=== PATIENT | female | born 1955 | race Caucasian/White ===

== ENCOUNTER → 2021-01-17 12:31 | Outpatient (CLI) | payer MEDICARE, MEDICAID, SELFPAY ==
[2021-01-05 10:12] VITALS: BMI 36.5
[2021-01-17 14:09] VITALS: PULSE 102; PULSE 110; PULSE 112; PULSE 114; PULSE 116; PULSE 118; PULSE 86; PULSE 88; O2SAT 86; O2SAT 87; O2SAT 89; O2SAT 90; O2SAT 91; O2SAT 92; O2SAT 94
--- NOTE | 2021-01-17 14:12 | CPS ---
PATIENT HAS OXYGEN AT HOME THROUGH [employer]. PLACED ON RA PRIOR TO TESTING. SPO2 86%, WALK BEGAN ON 2LPM. PATIENT RESTED FREQUENTLY THROUGHOUT TESTING, OXYGEN INCREASED TO 3LPM AROUND 3MIN OF TEST D/T SPO2 87% 2L. REMAINED ON 3LPM DURATION OF TEST.
--- NOTE | 2021-01-18 10:04 | WT_ITS ---
PSN 6 Minute Walk Test 6 Minute Walk Test 6 Minute Walk Test: 6 Minute Walk Test PSN:6-Minute Walk Test Start: 01/17/21 13:52 Freq: Status: Active Protocol: RESP.6MINW Document 01/17/21 14:09 [facility] (Rec: 01/17/21 14:14 [facility] [id number]) 6 Minute Walk Test Date Performed 01/17/21 Time Performed 12:30 Height 5 ft Weight: 210 lb Weight in Pounds 210.[address]: Venkatesh Morales Assistive device used: None Pre-test Oxygen Delivery Method Room Air Pulse Ox (%) 86 Pulse Rate (60-100 beats/min) 88 Dyspnea Mary Scale (0-10) 3 Reported Symptoms Increased Work of Breathing 1st minute Oxygen Flow Rate (L/min) (L/min) 2 Oxygen Delivery Method Nasal Cannula Pulse Ox (%) 90 Pulse Rate (60-100 beats/min) 102 H Dyspnea Mary Scale (0-10) 5 Number of Rests Taken 1 Reported Symptoms Increased Work of Breathing 2nd minute Oxygen Flow Rate (L/min) (L/min) 2 Oxygen Delivery Method Nasal Cannula Pulse Ox (%) 90 Pulse Rate (60-100 beats/min) 110 H Dyspnea Mary Scale (0-10) 5 Number of Rests Taken 1 Reported Symptoms Increased Work of Breathing 3rd minute Oxygen Flow Rate (L/min) (L/min) 2 Oxygen Delivery Method Nasal Cannula Pulse Ox (%) 87 Pulse Rate (60-100 beats/min) 116 H Dyspnea Mary Scale (0-10) 5 Number of Rests Taken 1 Reported Symptoms Increased Work of Breathing 4th minute Oxygen Flow Rate (L/min) (L/min) 3 Oxygen Delivery Method Nasal Cannula Pulse Ox (%) 91 Pulse Rate (60-100 beats/min) 112 H Dyspnea Mary Scale (0-10) 4 Number of Rests Taken 1 Reported Symptoms Increased Work of Breathing 5th minute Oxygen Flow Rate (L/min) (L/min) 3 Oxygen Delivery Method Nasal Cannula Pulse Ox (%) 92 Pulse Rate (60-100 beats/min) 114 H Dyspnea Mary Scale (0-10) 5 Number of Rests Taken 1 Reported Symptoms Increased Work of Breathing 6th minute Oxygen Flow Rate (L/min) (L/min) 3 Oxygen Delivery Method Nasal Cannula Pulse Ox (%) 89 Pulse Rate (60-100 beats/min) 118 H Dyspnea Mary Scale (0-10) 5 Number of Rests Taken 0 Reported Symptoms Increased Work of Breathing Post-test Oxygen Flow Rate (L/min) (L/min) 3 Oxygen Delivery Method Nasal Cannula Pulse Ox (%) 94 Pulse Rate (60-100 beats/min) 86 Dyspnea Mary Scale (0-10) 3 Reported Symptoms Increased Work of Breathing Full Laps Walked 6 Partial Lap, Number of Tiles Walked 13 Total Distance Walked (ft) 367 01/17/21 14:12 [facility] by Fatuma Roberts PATIENT HAS OXYGEN AT HOME THROUGH [employer]. PLACED ON RA PRIOR TO TESTING. SPO2 86%, WALK BEGAN ON 2LPM. PATIENT RESTED FREQUENTLY THROUGHOUT TESTING, OXYGEN INCREASED TO 3LPM AROUND 3MIN OF TEST D/T SPO2 87% 2L. REMAINED ON 3LPM DURATION OF TEST. Initialized on 01/17/21 14:12 - END OF NOTE Interpretation Interpretation: The patient ambulated 367 feet over the course of 6 minutes beginning on room air without assistive devices. Pretesting oxygen saturation was noted to be 86% on room air. Therefore, 2 L/min of oxygen was applied to the patient prior to the initiation of testing. With ambulation, the kimberli oxygen saturation was 87%. The patient supplemental oxygen flow rate was increased to 3 L/min to complete the remainder of the test. Recommendations Recommendations: 3 L/min of supplemental oxygen should be utilized at all times.
== END ==
PROVIDERS: PCP Nurse Practitioner Primary Care; Referring Provider Internal Medicine Critical Care Medicine; Visit Provider Internal Medicine Critical Care Medicine
DX: J96.11 Chronic respiratory failure with hypoxia (principal); Z99.81 Dependence on supplemental oxygen; G47.10 Hypersomnia, unspecified
CPT/HCPCS: 94618

== ENCOUNTER → 2021-01-19 12:58 | Outpatient (CLI) | payer MEDICARE, MEDICAID, SELFPAY ==
[2021-01-05 10:12] VITALS: BMI 36.5
--- NOTE | 2021-01-20 10:44 | PFT ---
INTRODUCTION: The patient is a 65-year-old female that presents for pulmonary function studies secondary to a diagnosis of hypoxemia. Respiratory therapy reports good patient effort. Bronchodilators were used during testing. INTERPRETATION: Forced expiration spirometry demonstrates the presence of a very severe large airways obstructive ventilatory defect. There was a partial, albeit technically nonsignificant, response to aerosolized bronchodilators. Spirograms are of fair quality but do not plateau indicating slow emptying of the lungs. Body plethysmography was performed and revealed an elevated RV to 157% of predicted, indicative of underlying air trapping. Diffusing capacity by single breath CO is severely reduced at 37% of predicted. IMPRESSION: Irreversible very severe large airways obstructive ventilatory defect with associated air trapping and symmetric reduction in diffusing capacity.
== END ==
PROVIDERS: PCP Nurse Practitioner Primary Care; Referring Provider Internal Medicine Critical Care Medicine; Visit Provider Internal Medicine Critical Care Medicine
DX: J96.11 Chronic respiratory failure with hypoxia (principal); Z99.81 Dependence on supplemental oxygen; G47.10 Hypersomnia, unspecified
CPT/HCPCS: 94060; 94726; 94729

== ENCOUNTER → 2021-02-07 20:00 | Outpatient (CLI) | payer MEDICARE, MEDICAID, SELFPAY ==
[2021-01-05 10:12] VITALS: BMI 36.5
== END ==
PROVIDERS: PCP Nurse Practitioner Primary Care; Referring Provider Internal Medicine Critical Care Medicine; Visit Provider Internal Medicine Critical Care Medicine
DX: J96.11 Chronic respiratory failure with hypoxia (principal); G47.10 Hypersomnia, unspecified
CPT/HCPCS: 95810

== ENCOUNTER → 2024-12-01 | Outpatient (CLI) | payer MEDICARE, MEDICAID, SELFPAY | END | disposition home or self-care (01) | PROVIDERS: PCP Nurse Practitioner Primary Care; Referring Provider Nurse Practitioner Family; Visit Provider Nurse Practitioner Family | DX: J44.9 Chronic obstructive pulmonary disease, unspecified (principal) | CPT/HCPCS: 94060; 94726 ==

== ENCOUNTER → 2024-12-28 | Outpatient (CLI) | payer MEDICARE, MEDICAID, SELFPAY ==
--- NOTE | 2024-12-28 12:32 | CT_ITS ---
PROCEDURE: LOW DOSE CT LUNG SCREENING 12/28/2024 REASON FOR EXAM: 30 PACK YEAR, QUIT 2019. TECHNIQUE: LOW DOSE CT LUNG SCREENING Coronal and Sagittal reconstruction series were provided. One or more dose reduction techniques were used (e.g., Automated exposure control, adjustment of the mA and/or kV according to patient size, use of iterative reconstruction technique). REFERENCE LINK: [facility] Lung-RADS RADIATION DOSE SUMMARY: CTDlvol: 4.02 mGy DLP: 133.9 mGycm COMPARISON: 07/30/2024. FINDINGS: PULMONARY NODULES: (Only nodules >3mm are reported) Nodules described below are on series 2 unless otherwise specified. Pulmonary Nodules: None. Mild bilateral basilar atelectatic pulmonary changes. Normal unenhanced main pulmonary artery and right and left pulmonary arteries. Normal bilateral peripheral pulmonary arteries. Normal thoracic aorta and visualized great vessels. There is no demonstrated aortic aneurysm. Normal heart and pericardium. Normal mediastinum. Normal hilar regions. Normal visualized trachea and bronchi. The remaining lungs are well expanded. Normal remaining pulmonary parenchyma. Normal pleura. Normal chest wall structures. Normal osseous structures. Normal visualized upper abdomen. CT/Low Dose CT Lung Screening IMPRESSION: Mild bilateral basilar atelectatic pulmonary changes. Coronary artery calcification (CAC) is is present Lung-RADS Category: 2 BENIGN (BASED ON IMAGING FEATURES OR INDOLENT BEHAVIOR). RECOMMEND 12-MONTH SCREENING LDCT. Other Significant Findings: None. Reading [facility] [address]
[2024-12-28 13:35] VITALS: PULSE 101; PULSE 106; PULSE 110; PULSE 112; PULSE 116; PULSE 79; PULSE 88; PULSE 92; O2SAT 87; O2SAT 88; O2SAT 89; O2SAT 90; O2SAT 92; O2SAT 94; O2SAT 97
--- NOTE | 2024-12-28 13:40 | CPS ---
PATIENT WAS PLACED ON ROOM AIR PRIOR TO WALK TEST. SPO2 WAS 87% AFTER 5 MINUTES, PLACED ON 2LPM AND WALK TEST BEGAN. PATIENT TOOK REST BREAKS EACH MINUTE, NO MORE EXERCISE COMPLETED AFTER 4TH MINUTE. PATIENT REQUIRED 4LPM TO KEEP SPO2 >88% AND WAS ABLE TO COMPLETE 141FT DURING TESTING. SHE HAS O2 AT HOME WITH [facility].
--- NOTE | 2024-12-31 10:11 | PCM.PSN.6M ---
PSN 6 Minute Walk Test 6 Minute Walk Test 6 Minute Walk Test: 6 Minute Walk Test PSN:6-Minute Walk Test Start: 12/28/24 13:34 Freq: Status: Active Protocol: RESP.6MINW Document 12/28/24 13:35 [facility] (Rec: 12/28/24 13:44 [facility] [id number]) 6 Minute Walk Test Date Performed 12/28/24 Time Performed 12:30 Height 5 ft Weight: 195 lb Weight in Pounds 195.[address]: Margo Reynaga Assistive device None used: Pre-test Oxygen Delivery Room Air Method Pulse Ox (%) 87 Pulse Rate (60-100 92 beats/min) Dyspnea Mary Scale ( 0 0-10) 1st minute Oxygen Flow Rate (L/ 2 min) (L/min) Oxygen Delivery Nasal Cannula Method Pulse Ox (%) 92 Pulse Rate (60-100 106 H beats/min) Dyspnea Mary Scale ( 3 0-10) Number of Rests 1 Taken Reported Symptoms Increased Work of Breathing 2nd minute Oxygen Flow Rate (L/ 2 min) (L/min) Oxygen Delivery Nasal Cannula Method Pulse Ox (%) 88 Pulse Rate (60-100 110 H beats/min) Dyspnea Mary Scale ( 4 0-10) Number of Rests 1 Taken Reported Symptoms Increased Work of Breathing 3rd minute Oxygen Flow Rate (L/ 3 min) (L/min) Oxygen Delivery Nasal Cannula Method Pulse Ox (%) 87 Pulse Rate (60-100 116 H beats/min) Dyspnea Mary Scale ( 4 0-10) Number of Rests 1 Taken Reported Symptoms Increased Work of Breathing 4th minute Oxygen Flow Rate (L/ 4 min) (L/min) Oxygen Delivery Nasal Cannula Method Pulse Ox (%) 89 Pulse Rate (60-100 112 H beats/min) Dyspnea Mary Scale ( 5 0-10) Number of Rests 1 Taken Reported Symptoms Increased Work of Breathing 5th minute Oxygen Flow Rate (L/ 4 min) (L/min) Oxygen Delivery Nasal Cannula Method Pulse Ox (%) 90 Pulse Rate (60-100 101 H beats/min) Dyspnea Mary Scale ( 4 0-10) Number of Rests 1 Taken Reported Symptoms Increased Work of Breathing 6th minute Oxygen Flow Rate (L/ 4 min) (L/min) Oxygen Delivery Nasal Cannula Method Pulse Ox (%) 94 Pulse Rate (60-100 88 beats/min) Dyspnea Mary Scale ( 3 0-10) Number of Rests 1 Taken Reported Symptoms Increased Work of Breathing Post-test Oxygen Flow Rate (L/ 4 min) (L/min) Oxygen Delivery Nasal Cannula Method Pulse Ox (%) 97 Pulse Rate (60-100 79 beats/min) Dyspnea Mary Scale ( 2 0-10) Full Laps Walked 2 Partial Lap, Number 23 of Tiles Walked Total Distance 141 Walked (ft) 12/28/24 13:40 Cardiopulmonary Services by Fatuma Roberts PATIENT WAS PLACED ON ROOM AIR PRIOR TO WALK TEST. SPO2 WAS 87% AFTER 5 MINUTES, PLACED ON 2LPM AND WALK TEST BEGAN. PATIENT TOOK REST BREAKS EACH MINUTE, NO MORE EXERCISE COMPLETED AFTER 4TH MINUTE. PATIENT REQUIRED 4LPM TO KEEP SPO2 >88% AND WAS ABLE TO COMPLETE 141FT DURING TESTING. SHE HAS O2 AT HOME WITH [facility]. Initialized on 12/28/24 13:40 - END OF NOTE Interpretation Interpretation: The patient ambulated 141 feet over the course of 6 minutes beginning on room air without assistive devices. Pretesting oxygen saturation was noted to be 87% on room air. 2 L/min of supplemental oxygen was applied to commence testing. With ambulation, the patient continued to desaturate, requiring an escalation in flow rate to 4 L/min to maintain appropriate saturations. Recommendations Recommendations: 2 L/min of oxygen is required at rest, while 4 L/min is required with exertion.
== END | disposition home or self-care (01) ==
LOC: CT 12:27
PROVIDERS: PCP Nurse Practitioner Primary Care; Referring Provider Nurse Practitioner Family; Visit Provider Nurse Practitioner Family
DX: J44.9 Chronic obstructive pulmonary disease, unspecified (principal); F17.210 Nicotine dependence, cigarettes, uncomplicated
CPT/HCPCS: 71271; 94618